=== PATIENT | female | born 1995 | race Caucasian/White ===

== ENCOUNTER 2016-10-08 14:35 | Emergency (ER) | payer OTHER ==
[2016-10-08 14:45] VITALS: TEMP 97.5
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
[2016-10-08] MEDS ORDERED: IBUPROFEN 600 MG TAB PO ONE (19:53)
[2016-10-08] MEDS ORDERED: ULIPRISTAL ACETATE 30 MG TAB PO ONE (19:53)
[2016-10-08 20:02] VITALS: BP 131/74; PULSE 72; RESP 16; O2SAT 94
== END 2016-10-08 22:50 | disposition home or self-care (01) ==
LOC: EEVIPCON 14:35
DX: T74.21XA Adult sexual abuse, confirmed, initial encounter (principal)